=== PATIENT | female | born 1940 | race Caucasian/White ===

== ENCOUNTER 2017-11-12 16:55 | Observation (INO) | payer MEDICAID, MEDICARE ==
[2017-11-12] MEDS ORDERED: ALBUTEROL SULFATE/IPRATROPIUM 3 ML NEBU IH ONE ×2 (18:14→18:18)
--- NOTE | 2017-11-12 18:15 | ERNOTE ---
Date of Service: 11/12/17 Time Seen by Provider: 11/12/17 18:04 Stated Complaint: BRONCHITIS Presenting Symptoms:: cough Source: patient, RN notes reviewed Exam Limitations: no limitations Immunizations: IMMUNIZATION HX Immunizations Up to Date Yes Allergies/Adverse Reactions: Allergies prednisone Allergy (Intermediate, Verified 11/12/17 17:19) RASH Sulfa (Sulfonamide Antibiotics) Allergy (Intermediate, Verified 11/12/17 17:19) Hives Home Medications: HOME MEDICATIONS ascorbic acid (vitamin C) ER 500 mg capsule,extended release 500 mg PO DAILY [Last Taken Unknown] aspirin 81 mg tablet,delayed release 81 mg PO DAILY 10/19/17 [Last Taken Unknown ] beta carotene 25,000 unit capsule 25,000 unit PO DAILY 10/19/17 [Last Taken Unknown] budesonide-formoterol HFA 160 mcg-4.5 mcg/actuation aerosol inhaler IH 120 Days #30 10/19/17 [Last Taken Unknown] calcium polycarbophil 625 mg tablet 625 mg PO DAILY tab 10/19/17 [Last Taken Unknown] cholecalciferol (vitamin D3) 400 unit tablet 400 unit PO DAILY 10/19/17 [Last Taken Unknown] docusate sodium 100 mg capsule 100 mg PO DAILY 10/19/17 [Last Taken Unknown] enalapril maleate 5 mg tablet 5 mg PO DAILY 90 Days #90 tab 10/19/17 [Last Taken Unknown] ezetimibe 10 mg tablet 10 mg PO DAILY 90 Days #90 tab 10/19/17 [Last Taken Unknown] omega-3 fatty acids 1,000 mg capsule 1,000 mg PO DAILY 10/19/17 [Last Taken Unknown] omeprazole 20 mg capsule,delayed release 20 mg PO DAILY 90 Days #90 cap [Last Taken Unknown] vitamin B12 0.5 mg-folic acid 1 mg tablet 1 tab PO DAILY 10/19/17 [Last Taken Unknown] vitamin E (dl, acetate) 400 unit capsule 400 unit PO DAILY 10/19/17 [Last Taken Unknown] - History of Present Ilness Narrative: Sugey is a 77 year old female brought to the ED by her son for a cough that began almost a week ago. She was seen in a clinic elsewhere 3 days ago and prescribed a ZPack. She has one dose of this left, but feels like she has continued to get worse. She states she has had low grade fevers. She has a history of asthma. She is a non-smoker. Date (Duration): 11/06/17 Timing: getting worse Frequency/Possible Cause: Reports: unknown cause Modifying Factors - Improves: Reports: albuterol Modifying Factors - Worsens: Reports: lying down Associated Symptoms: Reports: chest pain/soreness, cough, shortness of breath, nasal congestion, nasal drainage, fever/chills. Denies: wheezing, facial pain, earache, headache Prior Treatment: Reports: recently seen, treated by physician, currently on antibiotics. Denies: recently hospitalized Review of Systems - Review of Systems Constitutional: Present: See HPI, fatigue, malaise EYE: Absent: eye pain, eye discharge ENT: Present: See HPI Respiratory: Present: See HPI Cardiology: Present: See HPI Gastrointestinal/Abdominal: Absent: nausea, vomiting, abdominal pain Genitourinary: Absent: dysuria, decreased urinary output Musculoskeletal: Absent: muscle pain, joint pain Skin: Absent: rash, lesions Neurological: Present: See HPI Endocrine: Present: no symptoms reported Hematologic/Lymphatic: Absent: easy bruising, easy bleeding Psych: Present: no symptoms reported Medical History (Last Reviewed 11/12/17 @ 18:24 by Darlene Martinez) Asthma Onset Date: Unknown Borderline diabetes Onset Date: Unknown Hypercholesteremia Onset Date: Unknown Hypertension Onset Date: Unknown Surgical History: Surgical History (Last Reviewed 11/12/17 @ 18:24 by Darlene Martinez) History of appendectomy Onset Date: Unknown History of cholecystectomy Onset Date: Unknown History of colonoscopy Onset Date: Unknown History of skin cancer Onset Date: Unknown Family History: Family History (Last Reviewed 11/12/17 @ 18:24 by Darlene Martinez) Father Heart disease Asthma Mother Diabetes Social History: Preferred Language Telugu Alcohol Use none Drug Use none Physical Exam - Physical Exam General Appearance: Present: alert, obese, other - In no acute distress but appears to not feel well Head Exam: Present: normal inspection Eye Exam: Normal inspection: bilateral Ears, Nose, Throat: Present: nasal congestion, normal pharynx. Absent: abnormal TM (R), abnormal TM (L), sinus pain/drainage Neck: Present: normal inspection, nontender, supple Respiratory: Present: no respiratory distress, no accessory muscle use, rales - bilateral lower lungs Cardiovascular/Chest: Present: regular rate, rhythm, no murmur Extremity Exam: Present: normal inspection, no edema Neurological Exam: Present: alert, oriented, normal mood/affect, no motor/ sensory deficits Skin Exam: Present: warm/dry, pallor ED Progress - Results and Orders Patient's Lab Results:: I have reviewed the patient's lab results. - Vital Signs Patient's Vital Signs:: I have reviewed the patient's vital signs. Vital Signs: Vital Signs 11/12/17 17:14 Temperature 36.6 C Pulse Rate 86 Respiratory Rate 20 Blood Pressure 118/74 O2 Sat by Pulse Oximetry 94 - X-Ray X-Ray #1 X-Ray: chest Interpretation: Reviewed by me X-ray Comments: MPRESSION: Bilateral perihilar and bibasilar heterogeneous opacities. Given patient's history of cough and fever, this could represent infection or aspiration. Pulmonary edema also appears similar. Recommend clinical correlation. Electronically signed by Lexi Gibson D.O.. - Progress/Reassessment Chief Complaint: Upper Respiratory Symptoms Progress:: Unchanged Plan - Plan Plan: Patient has pneumonia and has failed outpatient treatment with a ZPack. Dr. Weavre was contacted and the patient will be admitted to observation status on med/surg. IV Levaquin ordered. Blood and urine cultures are pending. Departure Clinical Impression: Failure of outpatient treatment Pneumonia Qualifiers: Pneumonia type: due to unspecified organism Laterality: bilateral Lung location : unspecified part of lung Qualified Code(s): J18.9 - Pneumonia, unspecified organism - Departure Disposition: Still a patient Condition: Stable
[2017-11-12 18:56] LABS: Hematocrit 35.2 % (37.0-47.0); Hemoglobin 11.8 gm/dL (12.5-16.0); Mean Cell Volume 85.9 fl (78-100); Mean Corpuscular Hemoglobin 28.8 pg (27-31); Mean Corpuscular Hgb Conc 33.5 g/dl (32-36); Mean Platelet Volume 8.6 fl (8-12.5); Platelet Count 302 K/mm3 (150-450); Red Cell Distribution Width 13.2 % (11.5-14.0); White Blood Count 12.6 K/mm3 (4.0-10.5)
[2017-11-12 19:01] LABS: Albumin * 2.5 gm/dl (3.4-5.0); Anion Gap 9.3 mmol/L (6.8-13.8); BUN/Creatinine Ratio 17.6 (9.0-21.6); Bilirubin, Total 0.8 mg/dL (0.0-1.1); Ca. Corrected For Albumin 10.1 mg/dL (8.4-10.2); Calcium * 9.2 mg/dL (7.9-10.9); Carbon Dioxide 24.5 mmol/L (24-32.6); Potassium 3.8 mmol/L (3.4-4.6); Total Protein 7.6 gm/dL (6.2-8.2)
[2017-11-12 19:05] LABS: Total Cells Counted 100
[2017-11-12 19:35] LABS: Urine Bilirubin Negative (NEGATIVE); Urine Blood Negative /ul (NEGATIVE); Urine Ketone Negative (NEGATIVE); Urine Nitrite Negative (NEGATIVE); Urine Protein 15 mg/dL (NEGATIVE); Urine Urobilinogen Normal (NORMAL)
[2017-11-12 19:37] LABS: Urine Color Yellow
[2017-11-12 19:45] LABS: Urine Appearance Slightly Cloudy (CLEAR); Urine Bacteria TRACE; Urine Fine Granular Cast 0-5 /LPF; Urine RBC TRACE /hpf (0-5); Urine WBC 0-5 /hpf (0-5)
[2017-11-12 19:58] LABS: Eosinophil 1 % (0-3); Immature Granulocyte 6 (0-1); Lymphocyte 6 % (20-51); Monocyte 12 % (0-9); Neutrophil 75 % (42-75); Neutrophil # 9.5 K/mm3 (1.3-6.0)
[2017-11-12] MEDS ORDERED: LEVOFLOXACIN IN DEXTROSE 5 % 750 MG/150 ML BAG IV ONE (20:10)
[2017-11-12] MEDS ORDERED: ACETAMINOPHEN 500 MG TABLET PO PRN (21:17)
[2017-11-12 21:42] LABS: Anion Gap 13.4 mmol/L (6.8-13.8); BUN/Creatinine Ratio 17.9 (9.0-21.6); Calcium * 8.9 mg/dL (7.9-10.9); Carbon Dioxide 24.5 mmol/L (24-32.6); Estimated Creat Clear 27.4; Hematocrit 33.8 % (37.0-47.0); Hemoglobin 11.1 gm/dL (12.5-16.0); Mean Cell Volume 86.2 fl (78-100); Mean Corpuscular Hemoglobin 28.3 pg (27-31); Mean Corpuscular Hgb Conc 32.8 g/dl (32-36); Mean Platelet Volume 8.8 fl (8-12.5); Neutrophil # 9.5 K/mm3 (1.3-6.0); Neutrophil % 80.1 % (42-75.0); Platelet Count 265 K/mm3 (150-450); Potassium 3.9 mmol/L (3.4-4.6); Red Blood Count 3.92 M/mm3 (4.2-5.4); Red Cell Distribution Width 13.2 % (11.5-14.0); White Blood Count 11.9 K/mm3 (4.0-10.5)
[2017-11-12] MEDS: IBUPROFEN 400 MG TABLET PO PRN (22:57)
[2017-11-12] MEDS: FLUTICASONE/SALMETEROL 14 PUFF DISK.W.DEV IH SCH (22:57)
[2017-11-12] MEDS: DOCUSATE SODIUM 100 MG CAPSULE PO SCH (22:57)
[2017-11-12] MEDS: NORMAL SALINE 1,000 ML IV PRN (23:03)
[2017-11-13] MEDS: ALBUTEROL SULFATE 2.5 MG/0.5 ML VIAL.NEB IH SCH ×4 (06:11→18:54)
[2017-11-13] MEDS: IBUPROFEN 400 MG TABLET PO PRN ×2 (06:42→14:48)
[2017-11-13] MEDS ORDERED: PANTOPRAZOLE SODIUM 20 MG TABLET.DR PO SCH (07:00)
[2017-11-13] MEDS: FLUTICASONE/SALMETEROL 14 PUFF DISK.W.DEV IH SCH (08:23)
[2017-11-13] MEDS: DOCUSATE SODIUM 100 MG CAPSULE PO SCH (08:24)
[2017-11-13] MEDS ORDERED: ALBUTEROL SULFATE 2.5 MG/0.5 ML VIAL.NEB IH SCH (09:00)
[2017-11-13] MEDS ORDERED: EZETIMIBE 10 MG TABLET PO SCH (09:00)
[2017-11-13] MEDS ORDERED: ENALAPRIL MALEATE 5 MG TABLET PO SCH (09:00)
[2017-11-13] MEDS ORDERED: DOCUSATE SODIUM 100 MG CAPSULE PO SCH (09:00)
[2017-11-13] MEDS ORDERED: FLUTICASONE/SALMETEROL 14 PUFF DISK.W.DEV IH SCH (09:00)
--- NOTE | 2017-11-13 09:41 | PN ---
Subjective - Date and Time Seen Date: 11/13/17 Time: 08:30 Subjective Narrative: Sugey has had a very uncomfortable and restless night. She didn't rest or sleep well but she wasn't resting or sleeping well at home either because of the coughing and wheezing. She had temperature to 100.5 at home and has been afebrile here at the hospital. She is sitting up in her chair and has finished breakfast which she completed this morning. She continues to feel weak and fatigues easily with walking and has dyspnea with exertion. She is tolerating her medications well. Objective - Review of Systems Generalized/Overall Review: Reports: Weakness, Fever, Malaise, Fatigue EENTM: Reports: No Symptoms Reported Respiratory: Reports: Cough, Shortness of Breath, Wheezing Cardiac: Reports: No Symptoms Reported Abdominal: Reports: No Symptoms Reported Genitourinary Symptoms: Reports: No Symptoms Reported Musculoskeletal Complaints: Reports: No Symptoms Reported Neurological: Reports: No Symptoms Reported Skin: Reports: No Symptoms Reported Endocrine: Reports: No Symptoms Reported - Vitals Vitals: Last Vital Signs Temp 37.5 C 11/13/17 09:00 Pulse 93 11/13/17 09:00 Resp 18 11/13/17 09:00 BP 141/50 11/13/17 09:00 Pulse Ox 94 11/13/17 09:00 - Abnormal Lab Findings Abnormal Lab Findings: Abnormal Lab Results 11/12/17 11/12/17 11/12/17 Range/Units 18:35 18:35 18:35 WBC 12.6 H (4.0-10.5) K/mm3 RBC 4.10 L (4.2-5.4) M/mm3 Hgb 11.8 L (12.5-16.0) gm/dL Hct 35.2 L (37.0-47.0) % Immature Gran % (Auto) (0.001-0.429) % Immature Gran # (Auto) (0.000-0.0310) K/mm3 Neutrophils % (42-75.0) % Lymphocytes % (20-51) % Lymphocytes % (Manual) 6 L (20-51) % Monocytes % (0.0-9) % Monocytes % (Manual) 12 H (0-9) % Immature Granulocytes 6 H (0-1) Neutrophils # (1.3-6.0) K/mm3 Neutrophils # (Manual) 9.5 H (1.3-6.0) K/mm3 Lymphocytes # (1.5-3.5) k/mm3 Lymphocytes # (Manual) 0.8 L (1.5-3.5) k/mm3 Monocytes # (0.0-1.0) k/mm3 Monocytes # (Manual) 1.5 H (0.0-1.0) k/mm3 Sodium 127 L (132-142) mmol/L Plasma Sodium 127 L (130-142) mmol/L BUN 25 H (3-23) mg/dL Creatinine 1.42 H (0.4-1.4) mg/dL Est GFR (Non-Af Amer) 38 L (60-130) mL/min Random Glucose (70-110) mg/dL Alkaline Phosphatase 180 H (50-170) U/L B-Natriuretic Peptide 1710 H (5-550) pg/mL Albumin 2.5 L (3.4-5.0) gm/dl Urine Protein (NEGATIVE) mg/dL Ur Leukocyte Esterase (NEGATIVE) /ul Fine Granular Casts (NONE) /LPF WBC Casts (NONE) /LPF 11/12/17 11/12/17 11/12/17 Range/Units 18:50 21:28 21:28 WBC 11.9 H (4.0-10.5) K/mm3 RBC 3.92 L (4.2-5.4) M/mm3 Hgb 11.1 L (12.5-16.0) gm/dL Hct 33.8 L (37.0-47.0) % Immature Gran % (Auto) 1.30 H (0.001-0.429) % Immature Gran # (Auto) 0.15 H (0.000-0.0310) K/mm3 Neutrophils % 80.1 H (42-75.0) % Lymphocytes % 5.8 L (20-51) % Lymphocytes % (Manual) (20-51) % Monocytes % 11.0 H (0.0-9) % Monocytes % (Manual) (0-9) % Immature Granulocytes (0-1) Neutrophils # 9.5 H (1.3-6.0) K/mm3 Neutrophils # (Manual) (1.3-6.0) K/mm3 Lymphocytes # 0.69 L (1.5-3.5) k/mm3 Lymphocytes # (Manual) (1.5-3.5) k/mm3 Monocytes # 1.3 H (0.0-1.0) k/mm3 Monocytes # (Manual) (0.0-1.0) k/mm3 Sodium (132-142) mmol/L Plasma Sodium (130-142) mmol/L BUN 24 H (3-23) mg/dL Creatinine (0.4-1.4) mg/dL Est GFR (Non-Af Amer) 41 L (60-130) mL/min Random Glucose 188 H D (70-110) mg/dL Alkaline Phosphatase (50-170) U/L B-Natriuretic Peptide (5-550) pg/mL Albumin (3.4-5.0) gm/dl Urine Protein 15 H (NEGATIVE) mg/dL Ur Leukocyte Esterase 75 H (NEGATIVE) /ul Fine Granular Casts 0-5 H (NONE) /LPF WBC Casts 0-5 H (NONE) /LPF - EKG/Xray Findings XRAY: chest Interpretation: Reviewed by me - Exam Constitutional: Present: Alert, Oriented x3, Cooperative, Well developed, Well nourished, Mild distress, Lethargic, Elderly, Looks Younger than stated age ENT Exam: Present: normal ENT inspection, hearing grossly normal, pharynx normal , TMs normal Neck: Present: non-tender, full range of motion, supple, normal inspection, trachea midline Breasts: Present: Exam deferred Respiratory: Present: accessory muscle use - When walking, crackles, rhonchi, wheezing, expiration (prolonged), inspiration, plerual rub - Right upper posterior chest Cardiovascular/Chest: Present: normal peripheral pulses, regular rate, rhythm, no chest tenderness, no edema Abdomen: Present: Normal bowel sounds, soft, nontender, nondistended, no rebound tenderness, no hepatospenomegaly, no masses /Rectal: Present: Exam deferred Extremity: Present: normal range of motion Skin Exam: Present: normal color, warm/dry Lymphatic: Present: no adenopathy Neurologic: 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 Irizarry reports that she started wheezing and having increased respiratory difficulty after her son moved in with her with his dog. She knows she is allergic to cats and now thinks she may be allergic to dog fur or dander. She needs a nebulizer at home to do bronchodilator therapy treatments because of her asthma. She doesn't have one at present. A prescription has been written for 1 but she may have to purchase it out of pocket. I will continue with routine pneumonia protocol with Levaquin by mouth. Continue with respiratory therapy treatments. I'll see her again this evening and then decide whether she needs to stay and be admitted to regular admission or discharged on observation status. - Problems/Diagnosis (1) Pneumonia Problem: Acute Qualifiers: Pneumonia type: due to unspecified organism Laterality: bilateral Lung location: unspecified part of lung Qualified Code(s): J18.9 - Pneumonia, unspecified organism (2) Asthma Problem: Acute Qualifiers: Asthma severity: moderate Asthma persistence: persistent Asthma complication type: with acute exacerbation Qualified Code(s): J45.41 - Moderate persistent asthma with (acute) exacerbation (3) Failure of outpatient treatment Problem: Acute
[2017-11-13] MEDS ORDERED: IBUPROFEN 200 MG TABLET PO PRN (09:42)
[2017-11-13] MEDS ORDERED: LEVOFLOXACIN 750 MG TABLET PO SCH (11:00)
[2017-11-13] MEDS: NORMAL SALINE 1,000 ML IV PRN (11:33)
--- NOTE | 2017-11-13 20:09 | HP ---
Chief Complaint - Chief Complaint Date of Service: 11/12/17 Time of Service: 21:00 Chief Complaint: dyspnea and chest wall pain History of Present Illness: Onset of symptoms was 1 weeka ago andthe pleuritic chest pain has become worse. That makes her anxious and aggravates her breathing. CXR reveals bibasilar pneumonia. Medical History (Last Reviewed 11/12/17 @ 22:30 by Martine Lares RN) Asthma Onset Date: Unknown Borderline diabetes Onset Date: Unknown Hypercholesteremia Onset Date: Unknown Hypertension Onset Date: Unknown Surgical History: Surgical History (Last Reviewed 11/12/17 @ 22:30 by Martine Lares RN) History of appendectomy Onset Date: Unknown History of cholecystectomy Onset Date: Unknown History of colonoscopy Onset Date: Unknown History of skin cancer Onset Date: Unknown Family History: Family History (Last Reviewed 11/12/17 @ 22:30 by Martine Lares RN) Father Heart disease Asthma Mother Diabetes Social History: Patient Lives/Resources Home Utilized Occupation Retired Preferred Language Malay Do you have any pentecostal or Yes: Protastant/Hoahaoism cultural preference? Smoking Status Never smoker Have you smoked in the past 12 No months Do you dip or chew tobacco No Alcohol Use none Drug Use none Review Of Systems (GEN) - Review of Systems Generalized/Overall Review: Present: Weakness, Chills, Fever, Fatigue EENTM: Present: Nose Congestion, Throat Pain, Other - sinus pressure and pain Respiratory: Present: Cough, Shortness of Breath, Wheezing Cardiac: Present: Chest Pain - non-cardiac Abdominal: Present: No Symptoms Reported Genitourinary: Present: No Symptoms Reported Musculoskeletal: Present: No Symptoms Reported Neurological: Present: No Symptoms Reported Skin: Present: No Symptoms Reported Endocrine: Present: No Symptoms Reported Misc: All systems neg except as marked Immunizations: IMMUNIZATION HX Immunizations Up to Date Yes Allergies/Adverse Reactions: Allergies Allergy/AdvReac Type Severity Reaction Status Date / Time prednisone Allergy Intermediate RASH Verified 11/12/17 17:19 Sulfa (Sulfonamide Allergy Intermediate Hives Verified 11/12/17 17:19 Antibiotics) Home Medications: HOME MEDICATIONS ascorbic acid (vitamin C) ER 500 mg capsule,extended release 500 mg PO DAILY [Last Taken Unknown] aspirin 81 mg tablet,delayed release 81 mg PO DAILY 10/19/17 [Last Taken Unknown ] beta carotene 25,000 unit capsule 25,000 unit PO DAILY 10/19/17 [Last Taken Unknown] budesonide-formoterol HFA 160 mcg-4.5 mcg/actuation aerosol inhaler 1 inh IH BID 120 Days #30 10/19/17 [Last Taken Unknown] calcium polycarbophil 625 mg tablet 625 mg PO DAILY tab 10/19/17 [Last Taken Unknown] cholecalciferol (vitamin D3) 400 unit tablet 400 unit PO DAILY 10/19/17 [Last Taken Unknown] docusate sodium 100 mg capsule 100 mg PO DAILY 10/19/17 [Last Taken Unknown] enalapril maleate 5 mg tablet 5 mg PO DAILY 90 Days #90 tab 10/19/17 [Last Taken Unknown] ezetimibe 10 mg tablet 10 mg PO DAILY 90 Days #90 tab 10/19/17 [Last Taken Unknown] omega-3 fatty acids 1,000 mg capsule 1,000 mg PO DAILY 10/19/17 [Last Taken Unknown] omeprazole 20 mg capsule,delayed release 20 mg PO DAILY 90 Days #90 cap [Last Taken Unknown] vitamin B12 0.5 mg-folic acid 1 mg tablet 1 tab PO DAILY 10/19/17 [Last Taken Unknown] vitamin E (dl, acetate) 400 unit capsule 400 unit PO DAILY 10/19/17 [Last Taken Unknown] Ibuprofen 200 mg PO Q6H PRN 11/12/17 [Last Taken Unknown] Exam - Exam Vital Signs: Vital Signs - Last Taken Temp 37.1 C 11/13/17 15:21 Pulse 80 11/13/17 19:04 Resp 18 11/13/17 19:04 BP 125/48 11/13/17 15:21 Pulse Ox 94 11/13/17 18:54 Constitutional: Present: Alert, Oriented x3, Cooperative, Well developed, Mild distress ENT Exam: Present: normal ENT inspection, hearing grossly normal, pharynx normal , TMs normal Eye Exam: bilateral eye: normal inspection, PERRL, EOMI Neck: Present: non-tender, full range of motion, supple, normal inspection, trachea midline Back Exam: Present: normal inspection, no CVA tenderness, no vertebral tenderness Breasts: Present: Exam deferred Respiratory: Present: no accessory muscle use - with walking, respiratory distress, rhonchi - worse in the R. upper posterior chest., wheezing, expiration (prolonged), inspiration. Absent: no respiratory distress Cardiovascular/Chest: Present: normal peripheral pulses, regular rate, rhythm, no gallop, no JVD, no murmur, no rub. 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, no motor/sensory deficits, alert , normal mood/affect, oriented x 3 Appearance: Present: appropriate appearance, appropriate insight Eye contact: Present: cooperative, good eye contact, normal speech Thoughts: Present: normal thought pattern, no apparent hallucination Diagnostic Studies: Abnormal Lab Results 11/12/17 11/12/17 11/12/17 Range/Units 18:35 21:28 21:28 WBC 11.9 H (4.0-10.5) K/mm3 RBC 3.92 L (4.2-5.4) M/mm3 Hgb 11.1 L (12.5-16.0) gm/dL Hct 33.8 L (37.0-47.0) % Immature Gran % (Auto) 1.30 H (0.001-0.429) % Immature Gran # (Auto) 0.15 H (0.000-0.0310) K/mm3 Neutrophils % 80.1 H (42-75.0) % Lymphocytes % 5.8 L (20-51) % Lymphocytes % (Manual) 6 L (20-51) % Monocytes % 11.0 H (0.0-9) % Monocytes % (Manual) 12 H (0-9) % Immature Granulocytes 6 H (0-1) Neutrophils # 9.5 H (1.3-6.0) K/mm3 Neutrophils # (Manual) 9.5 H (1.3-6.0) K/mm3 Lymphocytes # 0.69 L (1.5-3.5) k/mm3 Lymphocytes # (Manual) 0.8 L (1.5-3.5) k/mm3 Monocytes # 1.3 H (0.0-1.0) k/mm3 Monocytes # (Manual) 1.5 H (0.0-1.0) k/mm3 BUN 24 H (3-23) mg/dL Est GFR (Non-Af Amer) 41 L (60-130) mL/min Random Glucose 188 H D (70-110) mg/dL Microbiology 11/12/17 Unknown Blood Culture - Preliminary Blood NO GROWTH 24 HOURS 11/12/17 18:35 Blood Culture - Preliminary Blood NO GROWTH 24 HOURS 11/12/17 18:50 Urine Culture - Preliminary Urine,Voided No Growth Laboratory Results WBC 11.9 K/mm3 (4.0-10.5) H 11/12/17 21:28 RBC 3.92 M/mm3 (4.2-5.4) L 11/12/17 21:28 Hgb 11.1 gm/dL (12.5-16.0) L 11/12/17 21:28 Hct 33.8 % (37.0-47.0) L 11/12/17 21:28 MCV 86.2 fl (78-100) 11/12/17 21: MCH 28.3 pg (27-31) 11/12/17 21:28 MCHC 32.8 g/dl (32-36) 11/12/17 21:28 RDW 13.2 % (11.5-14.0) 11/12/17 21:28 Plt Count 265 K/mm3 (150-450) 11/12/17 21:28 MPV 8.8 fl (8-12.5) 11/12/17 21:28 Immature Gran % (Auto) 1.30 % (0.001-0.429) H 11/12/17 21:28 Immature Gran # (Auto) 0.15 K/mm3 (0.000-0.0310) H 11/12/17 21:28 Neutrophils % 80.1 % (42-75.0) H 11/12/17 21:28 Neutrophils % (Manual) 75 % (42-75) 11/12/17 18:35 Lymphocytes % 5.8 % (20-51) L 11/12/17 21:28 Lymphocytes % (Manual) 6 % (20-51) L 11/12/17 18:35 Monocytes % 11.0 % (0.0-9) H 11/12/17 21:28 Monocytes % (Manual) 12 % (0-9) H 11/12/17 18:35 Eosinophils % 1.5 % (0.0-3.0) 11/12/17 21: Eosinophils % (Manual) 1 % (0-3) 11/12/17 18:35 Basophils % 0.3 % (0.0-1.0) 11/12/17 21: Nucleated RBC % 0.0 k/mm3 (0-1) 11/12/17 21: Immature Granulocytes 6 (0-1) H 11/12/17 18:35 Neutrophils # 9.5 K/mm3 (1.3-6.0) H 11/12/17 21:28 Neutrophils # (Manual) 9.5 K/mm3 (1.3-6.0) H 11/12/17 18:35 Lymphocytes # 0.69 k/mm3 (1.5-3.5) L 11/12/17 21:28 Lymphocytes # (Manual) 0.8 k/mm3 (1.5-3.5) L 11/12/17 18:35 Monocytes # 1.3 k/mm3 (0.0-1.0) H 11/12/17 21:28 Monocytes # (Manual) 1.5 k/mm3 (0.0-1.0) H 11/12/17 18:35 Eosinophils # 0.2 k/mm3 (0.0-0.7) 11/12/17 21:28 Eosinophils # (Manual) 0.1 k/mm3 (0.0-0.7) 11/12/17 18:35 Absolute Basophils 0.0 k/mm3 (0.0-0.1) 11/12/17 21: Sodium 133 mmol/L (132-142) 11/12/17 21:28 Plasma Sodium 134 mmol/L (130-142) 11/12/17 21:28 Potassium 3.9 mmol/L (3.4-4.6) 11/12/17 21: Chloride 99 mmol/L (97-106) 11/12/17 21:28 Carbon Dioxide 24.5 mmol/L (24-32.6) 11/12/17 21:28 Anion Gap 13.4 mmol/L (6.8-13.8) 11/12/17 21:28 BUN 24 mg/dL (3-23) H 11/12/17 21: Creatinine 1.34 mg/dL (0.4-1.4) 11/12/17 21:28 Est GFR (Non-Af Amer) 41 mL/min (60-130) L 11/12/17 21: BUN/Creatinine Ratio 17.9 (9.0-21.6) 11/12/17 21: Random Glucose 188 mg/dL (70-110) H D 11/12/17: Lactic Acid, Venous 1.5 mmol/L (0.4-2.0) 11/12/17: Calcium 8.9 mg/dL (7.9-10.9) 11/12/17: Calcium Adj for Albumin 10.1 mg/dL (8.4-10.2) 11/12/17 18:35 Total Bilirubin 0.8 mg/dL (0.0-1.1) 11/12/17 18:35 AST 34 U/L (0-48) 11/12/17 18:35 ALT 35 U/L (19-67) 11/12/17 18:35 Alkaline Phosphatase 180 U/L (50-170) H 11/12/17 18:35 B-Natriuretic Peptide 1710 pg/mL (5-550) H 11/12/17 18:35 Total Protein 7.6 gm/dL (6.2-8.2) 11/12/17 18:35 Albumin 2.5 gm/dl (3.4-5.0) L 11/12/17 18:35 Urine Color Yellow 11/12/17 18:50 Urine Appearance Slightly cloudy (CLEAR) 11/12/17 18:50 Urine pH 6.0 pH (5.0-7.0) 11/12/17 18:50 Ur Specific Hector 1.010 SP.GR. (1.005-1.010) 11/12/17 18:50 Urine Protein 15 mg/dL (NEGATIVE) H 11/12/17 18:50 Urine Glucose (UA) Negative mg/dL (NEGATIVE) 11/12/17 18:50 Urine Ketones Negative mg/dL (NEGATIVE) 11/12/17 18:50 Urine Blood Negative /ul (NEGATIVE) 11/12/17 18:50 Urine Nitrate Negative (NEGATIVE) 11/12/17 18:50 Urine Bilirubin Negative mg/dl (NEGATIVE) 11/12/17 18:50 Prot Sulfosalicylic Acd Negative mg/dL (0) 11/12/17 18:50 Urine Urobilinogen Normal EU/dl (NORMAL) 11/12/17 18:50 Ur Leukocyte Esterase 75 /ul (NEGATIVE) H 11/12/17 18:50 Urine RBC Trace /hpf (0-5) 11/12/17 18:50 Urine WBC 0-5 /hpf (0-5) 11/12/17 18:50 Ur Epithelial Cells 0-5 /hpf (0-5) 11/12/17 18:50 Urine Bacteria Trace (NONE) 11/12/17 18:50 Fine Granular Casts 0-5 /LPF (NONE) H 11/12/17 18:50 WBC Casts 0-5 /LPF (NONE) H 11/12/17 18:50 Urine Culture Comments Culture to follow 11/12/17 18:50 Assessment/Plan - Narrative Narrative: [place] Pleurisy dyspnea asthma Plan: Respiratory therapy with RT tx and incentive spirometry. Initial dose of IV Levaquin then switch to po. In crease activity as breathing and pain allows. - Assessment/Plan (1) Pneumonia Problem: Acute Qualifiers: Pneumonia type: due to unspecified organism Laterality: bilateral Lung location: unspecified part of lung Qualified Code(s): J18.9 - Pneumonia, unspecified organism (2) Asthma Problem: Acute Qualifiers: Asthma severity: moderate Asthma persistence: persistent Asthma complication type: with acute exacerbation Qualified Code(s): J45.41 - Moderate persistent asthma with (acute) exacerbation (3) Failure of outpatient treatment Problem: Acute
--- NOTE | 2017-11-13 20:31 | DS ---
(1) Pneumonia Problem: Acute Qualifiers: Pneumonia type: due to unspecified organism Laterality: bilateral Lung location: unspecified part of lung Qualified Code(s): J18.9 - Pneumonia, unspecified organism (2) Asthma Problem: Acute Qualifiers: Asthma severity: moderate Asthma persistence: persistent Asthma complication type: with acute exacerbation Qualified Code(s): J45.41 - Moderate persistent asthma with (acute) exacerbation (3) Failure of outpatient treatment Problem: Acute (4) Pleurisy without effusion Problem: Acute Description of Stay: Sugey Manrique is a 77-year-old female is admitted last night with diagnosis of pneumonia and asthma. She reported hypoxemia of 85% at home but the lowest we've had here is 90%. 94% this morning. She's been stable through the course of the day. She's been receiving respiratory therapy treatments and incentive spirometry. She's been on low-dose oxygen and weaned off of that. She had an initial dose of Levaquin 750 mg IV and then was switched to by mouth Levaquin today which she has tolerated well. She continues to have a lot of pleuritic chest pain particularly in the right upper posterior chest but also has pain around the sternum. Some of that is chronic. Nonetheless she is stable and having no difficulties this evening. She is requesting to go home and I concur that it is safe for her to do so. She can continue her by mouth antibiotic and respiratory therapy treatments at home. She will follow with her primary care physician in about 2 weeks. Procedures Performed: none Results and Findings: Pending Mircobiology Results 11/12/17 Unknown Blood Blood Culture - Preliminary NO GROWTH 24 HOURS 11/12/17 18:35 Blood Blood Culture - Preliminary NO GROWTH 24 HOURS 11/12/17 18:50 Urine,Voided Urine Culture - Preliminary No Growth Lab Pending Results 11/12/17 18:35: WBC 12.6 H, RBC 4.10 L, Hgb 11.8 L, Hct 35.2 L, MCV 85.9, MCH 28.8, MCHC 33.5, RDW 13.2, Plt Count 302, MPV 8.6, Neutrophils % (Manual) 75, Lymphocytes % (Manual) 6 L, Monocytes % (Manual) 12 H, Eosinophils % (Manual) 1 , Immature Granulocytes 6 H, Neutrophils # (Manual) 9.5 H, Lymphocytes # (Manual ) 0.8 L, Monocytes # (Manual) 1.5 H, Eosinophils # (Manual) 0.1 11/12/17 18:35: Sodium 127 L, Plasma Sodium 127 L, Potassium 3.8, Chloride 97, Carbon Dioxide 24.5, Anion Gap 9.3, BUN 25 H, Creatinine 1.42 H, Est GFR (Non- Af Amer) 38 L, BUN/Creatinine Ratio 17.6, Random Glucose 100, Calcium 9.2, Calcium Adj for Albumin 10.1, Total Bilirubin 0.8, AST 34, ALT 35, Alkaline Phosphatase 180 H, Total Protein 7.6, Albumin 2.5 L 11/12/17 18:35: B-Natriuretic Peptide 1710 H 11/12/17 18:50: Urine Color Yellow, Urine Appearance Slightly cloudy, Urine pH 6.0, Ur Specific [place] 1.010, Urine Protein 15 H, Urine Glucose (UA) Negative , Urine Ketones Negative, Urine Blood Negative, Urine Nitrate Negative, Urine Bilirubin Negative, Prot Sulfosalicylic Acd Negative, Urine Urobilinogen Normal , Ur Leukocyte Esterase 75 H, Urine RBC Trace, Urine WBC 0-5, Ur Epithelial Cells 0-5, Urine Bacteria Trace, Fine Granular Casts 0-5 H, WBC Casts 0-5 H, Urine Culture Comments Culture to follow 11/12/17 21:28: WBC 11.9 H, RBC 3.92 L, Hgb 11.1 L, Hct 33.8 L, MCV 86.2, MCH 28.3, MCHC 32.8, RDW 13.2, Plt Count 265, MPV 8.8, Immature Gran % (Auto) 1.30 H , Immature Gran # (Auto) 0.15 H, Neutrophils % 80.1 H, Lymphocytes % 5.8 L, Monocytes % 11.0 H, Eosinophils % 1.5, Basophils % 0.3, Nucleated RBC % 0.0, Neutrophils # 9.5 H, Lymphocytes # 0.69 L, Monocytes # 1.3 H, Eosinophils # 0.2 , Absolute Basophils 0.0 11/12/17 21:28: Sodium 133, Plasma Sodium 134, Potassium 3.9, Chloride 99, Carbon Dioxide 24.5, Anion Gap 13.4, BUN 24 H, Creatinine 1.34, Est GFR (Non-Af Amer) 41 L, BUN/Creatinine Ratio 17.9, Random Glucose 188 H D, Calcium 8.9 11/12/17 21:28: Lactic Acid, Venous 1.5 Discharge Location: Home Disposition: Home self-care Condition: Fair Face to Face Encounter completed per [facility] Guidelines: No Discharge Activity: Activity as tolerated Discharge Diet: General/regular food Referrals: Gonzalo Lemus MD [Primary Care Provider] - Additional Patient Instructions (free text): -Please make TCM appointment unless half-way discharge. Thank you! Enma @ [phone]. Complete Home Medications List: Complete Home Medication List: ascorbic acid (vitamin C) ER 500 mg capsule,extended release 500 mg PO DAILY aspirin 81 mg tablet,delayed release 81 mg PO DAILY 10/19/17 beta carotene 25,000 unit capsule 25,000 unit PO DAILY 10/19/17 budesonide-formoterol HFA 160 mcg-4.5 mcg/actuation aerosol inhaler 1 inh IH BID 120 Days #30 10/19/17 calcium polycarbophil 625 mg tablet 625 mg PO DAILY tab 10/19/17 cholecalciferol (vitamin D3) 400 unit tablet 400 unit PO DAILY 10/19/17 docusate sodium 100 mg capsule 100 mg PO DAILY 10/19/17 enalapril maleate 5 mg tablet 5 mg PO DAILY 90 Days #90 tab 10/19/17 ezetimibe 10 mg tablet 10 mg PO DAILY 90 Days #90 tab 10/19/17 omega-3 fatty acids 1,000 mg capsule 1,000 mg PO DAILY 10/19/17 omeprazole 20 mg capsule,delayed release 20 mg PO DAILY 90 Days #90 cap vitamin B12 0.5 mg-folic acid 1 mg tablet 1 tab PO DAILY 10/19/17 vitamin E (dl, acetate) 400 unit capsule 400 unit PO DAILY 10/19/17 Ibuprofen 200 mg PO Q6H PRN 11/12/17 Albuterol Sulfate [Albuterol Sulfate 2.5 MG/0.5ML] 2.5 mg IH QIDRT #100 vial.neb 11/13/17 Ibuprofen [Motrin] 400 mg PO Q6H PRN tablet 11/13/17 Levofloxacin [Levaquin] 750 mg PO DAILY@1100 9 Days #9 tab 11/13/17
[2017-11-13 20:54] VITALS: BP 117/54
== END 2017-11-13 21:10 | disposition home or self-care (01) ==
LOC: MS 16:55 → ER 16:55 → MS 20:30
PROVIDERS: ADMIT Family Medicine; ATTEND Family Medicine
DX: R09.1 Pleurisy; I10 Essential (primary) hypertension; J18.9 Pneumonia, unspecified organism; J45.901 Unspecified asthma with (acute) exacerbation; B95.4 Other streptococcus as the cause of diseases classified elsewhere; Z68.39 Body mass index [BMI] 39.0-39.9, adult
CPT/HCPCS: 36415; 71020; 71046; 80048; 80053; 81001; 83519; 83605; 83880; 85025; 87040; 87077; 87086; 87186; 94640; 94664; 96361; 96365; 99284; G0378